=== PATIENT | male | born 1945 | race Caucasian/White ===

== ENCOUNTER → 2020-09-09 10:22 | Outpatient (BNVA) | payer MEDICARE, SELFPAY | PROVIDERS: PCP Internal Medicine Pulmonary Disease; Visit Provider Urology | DX: N52.31 Erectile dysfunction following radical prostatectomy (principal); E29.1 Testicular hypofunction; C61 Malignant neoplasm of prostate; N50.819 Testicular pain, unspecified | CPT/HCPCS: 51798; 81002; 99202 ==

== ENCOUNTER 2020-09-09 11:42 | Outpatient (REF) | payer MEDICARE, SELFPAY ==
[2020-09-13 19:11] LABS: Testosterone, Free 52.5 pg/mL (30.0-135.0); Testosterone, Total 500 ng/dL (250-1100)
== END 2020-09-09 11:43 | disposition home or self-care (01) ==
LOC: HO.10HDL 11:42
PROVIDERS: Visit Provider Urology
DX: E29.1 Testicular hypofunction (principal)
CPT/HCPCS: 84402; 84403

== ENCOUNTER → 2020-09-28 11:42 | Outpatient (BNVA) | payer MEDICARE, SELFPAY | PROVIDERS: PCP Internal Medicine Pulmonary Disease; Visit Provider Urology | DX: Z76.89 Persons encountering health services in other specified circumstances (principal) | CPT/HCPCS: Q3014 ==

== ENCOUNTER → 2021-10-04 09:30 | Outpatient (BNVA) | payer MEDICARE, SELFPAY | PROVIDERS: PCP Internal Medicine Pulmonary Disease; Visit Provider Urology | DX: C61 Malignant neoplasm of prostate (principal); E29.1 Testicular hypofunction; N52.31 Erectile dysfunction following radical prostatectomy | CPT/HCPCS: 99212 ==

== ENCOUNTER → 2021-11-30 13:41 | Outpatient (BNVA) | payer MEDICARE, SELFPAY | PROVIDERS: PCP Internal Medicine Pulmonary Disease; Visit Provider Urology | DX: C61 Malignant neoplasm of prostate (principal); N52.31 Erectile dysfunction following radical prostatectomy | CPT/HCPCS: 52000; 99212 ==

== ENCOUNTER → 2022-12-05 11:01 | Outpatient (BNVA) | payer MEDICARE, SELFPAY | PROVIDERS: PCP Internal Medicine; Visit Provider Urology | DX: C61 Malignant neoplasm of prostate (principal); E29.1 Testicular hypofunction; N52.31 Erectile dysfunction following radical prostatectomy; N45.1 Epididymitis; Z90.79 Acquired absence of other genital organ(s) | CPT/HCPCS: 99212 ==

== ENCOUNTER 2023-12-04 10:00 | Outpatient (AMB) | payer MEDICARE, SELFPAY ==
--- NOTE | 2023-12-04 11:16 | A.OFFVIS_ITS ---
Intake Intake Visit Reasons: 1Y Follow up/Patient has urgent concerns Intake Note: Patient is Present for Follow Up Patient has concerns he wants to discuss with Urologheidi Medication: None Antibiotic Allergies: Doxycycline, Sulfa Blood Thinners: Aspirin Allergies codeine Allergy (Verified 12/05/22 11:31) Unknown doxycycline Allergy (Verified 12/05/22 11:31) Unknown Sulfa (Sulfonamide Antibiotics) Allergy (Verified 12/05/22 11:31) Unknown HPI HPI Comments History of Present Illness Details Ruddy is a pleasant male. He is a patient of Dr. Aguirre. He is seen for the following urologic issues - prostate cancer - hypogonadism - chronic epididymitis Flare of epididymitis on right side Tender on exam Trial 14 days Levaquin Main complaint regards muscle soreness from high dose cholesterol therapy Did not tolerate Repatha Also complains of increasing urinary leakage Suggest trial penile clamp May have unstable bladder with urgency and frequency 4 week tele follow-up Prostate cancer [place] 3 + 4 1994 Underwent prostatectomy 1995 Postprocedure erectile dysfunction PSA followed through primary care PSA 09/18 <0.1, 12/21 <0.1 Cystoscopy 12/20 open bladder anastomosis Hypogonadism Has been on testosterone replacement From [place] Lab work needs to be reviewed 09/17 T 500 [facility] Medical History Hyperlipidemia Hypogonadism in male Scrotal pain Sleep apnea Surgical History History of knee surgery History of prostate surgery Family History Other HTN (hypertension) Assessment & Plan Assessment & Plan (1) Epididymitis: Code(s): N45.1 - Epididymitis Plan Levaquin Four week follow-up Medications: New levofloxacin 250 mg PO DAILY 14 tabs 0RF 14 days N45.1 - Epididymitis Patient Instructions: Imaging studies, laboratory and physical exam results were discussed and rev iewed in detail. No major barriers to patient understanding were identified. An opportunity to ask questions regarding the treatment plan was provided. All questions were answered. The patient expressed understanding and agreement with the above treatment plan. The patient is aware they should contact our office by phone for worsening of their current condition or the appearance of new urologic symptoms. Compliance is encouraged with any medications and followup testing that is ordered. It is a privilege to participate in the urologic care of your patient. If you have any questions or concerns regarding treatment for the above conditions, or other urologic issues, please do not hesitate to contact me. The office telephone contact is [phone]. This note is constructed using voice recognition software. While every effort has been made to ensure accuracy product design specialist errors may have been included. Yours sincerely, Dr Melo Matson MD, [facility] - Urology Providers of Expert, Compassionate Care for the Genitourinary System Coding Level of Care Code Est Pt Level 4 (44240) Diagnoses Epididymitis N45.1
== END 2023-12-04 11:52 | disposition home or self-care (01) ==
PROVIDERS: Visit Provider Urology
DX: N45.1 Epididymitis (principal)
CPT/HCPCS: 99214

== ENCOUNTER → 2023-12-04 10:00 | Outpatient (BNVA) | payer MEDICARE, SELFPAY | PROVIDERS: Visit Provider Urology | DX: N45.1 Epididymitis (principal) | CPT/HCPCS: 99212 ==

== ENCOUNTER 2024-01-03 10:26 | Outpatient (AMB) | payer MEDICARE, SELFPAY ==
--- NOTE | 2024-01-03 10:26 | A.OFFVIS_ITS ---
Intake Intake Visit Reasons: 1M PSA(set) Intake Note: Patient presents today for a telehealth follow-up Meds- None Allergies to Antibiotic- Sulfa, Doxycycline, Cipro, Fluoroquinolones Blood Thinner- Aspirin-dipyridamole Hand Bulldozer Required: No Allergies codeine Allergy (Severe, Verified 01/03/24 10:30) Anaphylaxis doxycycline Allergy (Severe, Verified 01/03/24 10:30) Anaphylaxis Sulfa (Sulfonamide Antibiotics) Allergy (Severe, Verified 01/03/24 10:30) Anaphylaxis ciprofloxacin Allergy (Severe, Uncoded 01/03/24 10:30) Anaphylaxis fluoroquinolones Allergy (Severe, Uncoded 01/03/24 10:30) Anaphylaxis percocet Allergy (Severe, Uncoded 01/03/24 10:30) Anaphylaxis HPI HPI Comments History of Present Illness Details Ruddy is a pleasant male. He is a patient of Dr. Aguirre. He is seen for the following urologic issues - prostate cancer - hypogonadism - chronic epididymitis Telemedicine Evaluation 15 min Consultation [employer] [place] [employer] attempted PSA stable Discussed use of penile clamp for urinary frequency and urgency May have unstable bladder with urgency and frequency Prostate cancer [place] 3 + 4 1994 Underwent prostatectomy 1995 Postprocedure erectile dysfunction PSA followed through primary care PSA 09/18 <0.1, 12/21 <0.1, 12/22 <0.1 Cystoscopy 12/20 open bladder anastomosis Hypogonadism Has been on testosterone replacement From [place] Lab work needs to be reviewed 09/17 T 500 [facility] Medical History Hyperlipidemia Sleep apnea Hypogonadism in male Scrotal pain Surgical History History of knee surgery History of prostate surgery Family History Other HTN (hypertension) Review of Systems Const All systems reviewed & are unremarkable except as noted in HPI and below Reports no additional complaints Resp Reports no additional complaints GI Reports no additional complaints Reports as per HPI Musc Reports no additional complaints Physical Exam Telemedicine evaluation Appropriate responses Regular breathing rate and rhythm HEENT Head: Yes normal to inspection Ears: hearing grossly normal bilaterally Eyes General: appearance normal, both eyes and all related structures Neck Neck: Yes normal visual inspection Chest Chest palpation & inspection: normal inspection of the chest Resp Effort & Inspection: normal respiratory effort and able to speak in complete sentences Assessment & Plan Assessment & Plan (1) Scrotal disorder: Code(s): N50.9 - Disorder of male genital organs, unspecified Plan Six-month follow-up office Medications: Discontinued levofloxacin Discontinued Reason: Patient Completed Course 250 mg PO DAILY 14 days 14 tabs 0RF N45.1 - Epididymitis Patient Instructions: Imaging studies, laboratory and physical exam results were discussed and reviewed in detail. No major barriers to patient understanding were identified. An opportunity to ask questions regarding the treatment plan was provided. All questions were answered. The patient expressed understanding and agreement with the above treatment plan. The patient is aware they should contact our office by phone for worsening of their current condition or the appearance of new urologic symptoms. Compliance is encouraged with any medications and followup testing that is ordered. It is a privilege to participate in the urologic care of your patient. If you have any questions or concerns regarding treatment for the above conditions, or other urologic issues, please do not hesitate to contact me. The office telephone contact is [phone]. This note is constructed using voice recognition software. While every effort has been made to ensure accuracy buff wheel fabricator errors may have been included. Yours sincerely, Dr Melo Matson MD, [facility] - Urology Providers of Expert, Compassionate Care for the Genitourinary System Telehealth Telehealth Location of provider rendering services: practice address Location of patient: address on file Patient Identification confirmed using: Name, : Yes Telehealth method: voice only Patient verbally consented to treatment: Yes Patient verbally consented to billing insurance company: Yes Patient informed of any privacy concerns related to visit: Yes Coding Level of Care Code Tele Est Pt Level 3 (39330) Diagnoses Scrotal disorder N50.9
== END 2024-01-03 11:53 | disposition home or self-care (01) ==
LOC: HO.HUSH 10:26
PROVIDERS: PCP Internal Medicine; Visit Provider Urology
DX: N50.9 Disorder of male genital organs, unspecified (principal)
CPT/HCPCS: 99442

== ENCOUNTER → 2024-01-03 10:26 | Outpatient (BNVA) | payer MEDICARE, SELFPAY | PROVIDERS: PCP Internal Medicine; Visit Provider Urology ==